=== PATIENT | female | born 2000 | race Caucasian/White ===

== ENCOUNTER 2018-08-27 19:11 | Emergency (ER) | payer SELFPAY ==
[2018-08-27 19:15] VITALS: BMI 20.7
--- NOTE | 2018-08-27 20:15 | PDOC ---
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 Pt states the symptoms started Wednesday night when she was leaning back on her bed. She drank tea on and felt better but the pain returned again when she tried stretching again. She feels the pressure at rest and when she is lifting something heavy, is not worse with exertion. Denies association with eating or food. Denies abdominal pain, n/v/d, SOB, syncope, lightheadedness, palpitations, back pain, neck pain, headaches, cough, fevers, chills. PMD: PMH: see hpi PSH: none Meds: none Allergies: nkda Social: denies Past History - Past Medical History Allergies/Adverse Reactions: Allergies Allergy/AdvReac Type Severity Reaction Status Date / Time No Known Allergies Allergy Verified 08/27/18 19:15 Home Medications: Ambulatory Orders No Home Medications 0 dose .ROUTE UTDICT 04/13/13 Pantoprazole Sodium [Protonix] 40 mg PO DAILY #14 tablet. 08/28/18 COPD: No - Suicide/Smoking/Psychosocial Hx Smoking Status: No Smoking History: Never smoked Number of Cigarettes Smoked Daily: 0 Review of Systems - Review of Systems Constitutional: No: Chills, Fever, Malaise HEENTM: No: Symptoms Reported Respiratory: No: Cough, Shortness of Breath, Hemoptysis Cardiac (ROS): Yes: See HPI, Chest Tightness. No: Edema, Irregular Heart Rate, Lightheadedness, Palpitations, Syncope ABD/GI: Yes: See HPI. No: Constipated, Diarrhea, Nausea, Rectal Bleeding, Vomiting, Tarry Stools : No: Burning, Dysuria, Flank Pain Musculoskeletal: No: Back Pain, Joint Pain, Neck Pain Integumentary: No: Symptoms Reported Neurological: No: Headache, Numbness, Tingling, Weakness *Physical Exam - Vital Signs Last Vital Signs Temp Pulse Resp BP Pulse Ox 98.5 F 114 H 18 113/72 99 08/27/18 19:13 08/27/18 19:13 08/27/18 19:13 08/27/18 19:13 08/27/18 19:13 - Physical Exam General Appearance: Yes: Nourished, Appropriately Dressed. No: Apparent Distress HEENT: positive: EOMI, TONY. negative: Pale Conjunctivae, Scleral Icterus (R), Scleral Icterus (L) Neck: positive: Trachea midline, Supple. negative: Lymphadenopathy (R), Lymphadenopathy (L) Respiratory/Chest: positive: Lungs Clear, Normal Breath Sounds. negative: Crackles, Rales, Rhonchi, Stridor Cardiovascular: positive: Regular Rhythm, S1, S2, Tachycardia. negative: Edema , JVD, Murmur Vascular Pulses: Carotid (R): 2+, Carotid (L): 2+, Dorsalis-Pedis (R): 2+, Doralis-Pedis (L): 2+ Gastrointestinal/Abdominal: positive: Normal Bowel Sounds, Soft. negative: Distended, Guarding, Rebound, Tenderness, Hernia Musculoskeletal: negative: CVA Tenderness Extremity: positive: Normal Capillary Refill, Pelvis Stable. negative: Swelling , Calf Tenderness Integumentary: positive: Normal Color, Dry, Warm Neurologic: positive: prop drawer II-XII NML intact, Fully Oriented, Alert, Normal Mood/ Affect, Normal Response, Motor Strength 5/5 Moderate Sedation - Procedure Monitoring Vital Signs: Procedure Monitoring Vital Signs Temperature 98.5 F 08/27/18 19:13 Pulse Rate 114 H 08/27/18 19:13 Respiratory Rate 18 08/27/18 19:13 Blood Pressure 113/72 08/27/18 19:13 O2 Sat by Pulse Oximetry (%) 99 08/27/18 19:13 ED Treatment Course - LABORATORY CBC & Chemistry Diagram: 08/27/18 21:00 08/27/18 21:00 Medical Decision Making - Medical Decision Making 08/28/18 07:38 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 Pt states the symptoms started Wednesday night when she was leaning back on her bed. She drank tea on and felt better but the pain returned again when she tried stretching again. She feels the pressure at rest and when she is lifting something heavy, is not worse with exertion. Denies association with eating or food. Denies abdominal pain, n/v/d, SOB, syncope, lightheadedness, palpitations, back pain, neck pain, headaches, cough, fevers, chills. Vitals: tachycardia PE: benign High suspicion for GERD. Bc of history of Day, will do cardiac workup. given pepcid, maalox, protonix IV fluids. cbc, cmp, lipase, troponin, ekg, cxr Pt reports having reduction in epigastric fullness but still has pain on L side of chest. bc of pmh, will order CTA chst to r/o dissection, aortic root pathology given that pt has not followed up with a parks and recreation worker. CTA negative for dissection, pe, aortic pathology. Horseshoe kidney. Labs wnl. Pt reports feeling better. Will dc with protonix and [facility] primary care pamphlet for pmd. *DC/Admit/Observation/Transfer Diagnosis at time of Disposition: Chest pressure Acid reflux Qualifiers: Esophagitis presence: esophagitis presence not specified Qualified Code(s): K21.9 - Gastro-esophageal reflux disease without esophagitis - Discharge Dispostion Disposition: HOME Condition at time of disposition: Improved Decision to Admit order: No - Prescriptions Prescriptions: Pantoprazole Sodium [Protonix] 40 mg PO DAILY #14 tablet.dr - Referrals - Patient Instructions Printed Discharge Instructions: DI for Gastroesophageal Reflux Disease (GERD) Additional Instructions: You were seen in the emergency room for upper stomach fullness and a pressure in the chest. I think this is mainly GERD. This happens when the acid in the stomach irritates the esophagus. It can present with discomfort in the upper stomach and chest. I recommend eating less fried and fatty foods and anything acidic. Try not to eat right before you go to bed, wait at least 1 hour before you lay down after eating. You should also wait a few hours before doing any exercise after eating. A prescription was sent to your pharmacy for Protonix. Take it as directed. I highly recommend you make an appointment with your primary care doctor in the next few days for further evaluation and management of your symptoms. If you want a new doctor, a list has been provided to you for the different primary care doctors affiliated with this [facility]. You can call the number on the card and schedule an appointment any time. I would also recommend seeing a parks and recreation worker to follow up with annually to make sure everything is OK with your heart. The primary care doctor can refer you to one. Come back to the emergency room if pain worsens, if you have difficulty breathing, you have palpitations, you pass out, you start vomiting or if any new concerning symptom develops. Thank you - Post Discharge Activity
[2018-08-27] MEDS ORDERED: MAG HYDROX/AL HYDROX/SIMETH 30 ML UNIT-DOSE CUP PO ONE (20:26)
[2018-08-27] MEDS ORDERED: ACETAMINOPHEN 325 MG TABLET (FP) PO ONE (20:26)
[2018-08-27] MEDS ORDERED: FAMOTIDINE 20 MG/50 ML IVPB 20 MG/50 ML MG IVPB ONE ×2 (20:26→21:10)
[2018-08-27] MEDS ORDERED: PANTOPRAZOLE 20 MG TABLET (FP) PO ONE (20:38)
[2018-08-27] MEDS ORDERED: RANITIDINE HCL 150 MG TABLET (FP) PO ONE (20:39)
--- NOTE | 2018-08-27 21:02 | PDOC ---
Attending Attestation - Resident Resident Name: RoselineChayo - ED Attending Attestation I have performed the following: I have examined & evaluated the patient, The case was reviewed & discussed with the resident, I agree w/resident's findings & plan, Exceptions are as noted - HPI HPI: 08/27/18 21:32 18 year old female c/ hx of Day Syndrome presents with epigastric burning pain. Pt reports that in the last few days, the patient noted that when she ate, she felt a burning xiphoid discomfort. No nausea, vomiting. Denies exertional component. Denies fevers, chills. 1st time episode. No shortness of breath. Denies radiation to the back. no sharp or tearing component. - Physicial Exam PE: 08/27/18 21:40 GENERAL: Awake, alert, and fully oriented, in no acute distress HEAD: No signs of trauma EYES: EOMI, sclera anicteric, conjunctiva clear ENT: Auricles normal inspection, hearing grossly normal, nares patent, Moist mucosa NECK: Normal ROM, supple, LUNGS: Breath sounds equal, clear to auscultation bilaterally. No wheezes, and no crackles HEART: Regular rate and rhythm, normal S1 and S2, no murmurs, rubs or gallops ABDOMEN: Soft, mildly TTP epigastric. Euceda sign negative. No guarding, no rebound. No masses EXTREMITIES: Normal range of motion, no edema. No clubbing or cyanosis. No cords, erythema, or tenderness NEUROLOGICAL: Cranial nerves II through XII grossly intact. Normal speech, normal gait SKIN: Warm, Dry, normal turgor, no rashes or lesions noted. - Medical Decision Making 08/27/18 21:40 Vital Signs Temp Pulse Resp BP Pulse Ox 98.5 F 114 H 18 113/72 99 08/27/18 19:13 08/27/18 19:13 08/27/18 19:13 08/27/18 19:13 08/27/18 19:13 Patient's history is atypical for ACS/PE/dissection. I suspect patient has gastritis. Labs including lipase, troponin. Trial GERD medications and reassess. If the workup is negative and pt feels better after meds, pt can be d/c home with PMD followup. Heart Score/ECG Review #1 ECG reviewed & interpreted by me at: 21:35 08/27/18 21:38 NSr 102, no std/marsia, normal axis, normal intervals, nonspecific ST flattening III, avF, QTC 430 msec
[2018-08-27] MEDS ORDERED: ACETAMINOPHEN 325 MG TABLET (FP) ONE (21:09)
[2018-08-27] MEDS ORDERED: RANITIDINE HCL 150 MG TABLET (FP) ONE (21:09)
[2018-08-27] MEDS ORDERED: MAG HYDROX/AL HYDROX/SIMETH 30 ML UNIT-DOSE CUP ONE (21:10)
[2018-08-27] MEDS ORDERED: PANTOPRAZOLE 40 MG TABLET (FP) ONE (21:10)
[2018-08-27 21:16] LABS: BASO % 1.5 % (0-2.0); EOS % 0.5 % (0-4.5); HEMATOCRIT 37.3 % (32.4-45.2); HEMOGLOBIN 13.3 GM/dL (10.7-15.3); LYMPH % 17.5 % (8-40); MCH 30.9 pg (25.7-33.7); MCHC 35.6 g/dl (32.0-36.0); MEAN CELL VOLUME 86.9 fl (80-96); MEAN PLT VOLUME 7.5 fl (7.5-11.1); MONO % 8.7 % (3.8-10.2); NEUT % 71.8 % (42.8-82.8); PLATELET COUNT 329 K/MM3 (134-434); RDW 13.2 % (11.6-15.6); WHITE BLOOD COUNT 6.8 K/mm3 (4.0-10.0)
[2018-08-27 21:44] LABS: INR 1.18 (0.83-1.09); PROTHROMBIN TIME (PATIENT) 13.9 SEC (9.7-13.0)
[2018-08-27 21:56] LABS: ALBUMIN 5.1 g/dl (3.4-5.0); ALK PHOS 143 U/L (45-117); ANION GAP 11 MMOL/L (8-16); BILIRUBIN,TOTAL 0.7 mg/dL (0.2-1); BLOOD UREA NITROGEN 11 mg/dL (7-18); CALCIUM 9.4 mg/dL (8.5-10.1); CHLORIDE 103 mmol/L (98-107); CO2 24 mmol/L (21-32); CREATININE 0.5 mg/dL (0.55-1.3); GLUCOSE,RANDOM 84 mg/dL (74-106); LIPASE 115 U/L (73-393); POTASSIUM 3.6 mmol/L (3.5-5.1); SGOT/AST 19 U/L (15-37); SGPT/ALT 29 U/L (13-61); SODIUM 138 mmol/L (136-145); TOT PROT 8.7 g/dl (6.4-8.2)
[2018-08-27 22:41] VITALS: BP 124/72; PULSE 101; TEMP 98.1
[2018-08-27] MEDS ORDERED: SODIUM CHLORIDE 1,000 ML IV STA (22:49)
--- NOTE | 2018-08-28 11:08 | EKG ---
Test Reason : Blood Pressure : / mmHG Vent. Rate : 102 BPM Atrial Rate : 102 BPM P-R Int : 130 ms QRS Dur : 074 ms QT Int : 330 ms P-R-T Axes : 072 037 024 degrees QTc Int : 430 ms SINUS TACHYCARDIA NONSPECIFIC ST ABNORMALITY POSSIBLE LEFT ATRIAL ENLARGEMENT WHEN COMPARED WITH ECG OF 13-APR-2013 20:03, PREVIOUS ECG IS PRESENT Confirmed by JASEN ARANGO MD ([id number]) on 08/28/2018 11:08:12 AM Referred By: Confirmed By:JASEN ARANGO MD
== END 2018-08-28 00:46 | disposition home or self-care (01) ==
LOC: JER 19:11
PROC: 3E0337Z Introduction of Electrolytic and Water Balance Substance into Peripheral Vein, Percutaneous Approach (ICD-10-PCS; principal; 2018-08-27)
PROC: 3E033GC Introduction of Other Therapeutic Substance into Peripheral Vein, Percutaneous Approach (ICD-10-PCS; 2018-08-27)
DX: K21.9 Gastro-esophageal reflux disease without esophagitis (principal); R07.89 Other chest pain; Q96.9 Turner's syndrome, unspecified
CPT/HCPCS: 36415; 71046-TC-FY; 71275-TC; 74175-TC; 80053; 83690; 84484; 85025; 85610; 93005; 93010; 99283-25; J7030

== ENCOUNTER 2019-06-30 21:47 | Emergency (ER) | payer SELFPAY ==
[2019-06-30 22:01] VITALS: BMI 23.1
--- NOTE | 2019-06-30 23:54 | PDOC ---
Attending Attestation - Resident Resident Name: Chris Velazco - ED Attending Attestation I have performed the following: I have examined & evaluated the patient, The case was reviewed & discussed with the resident, I agree w/resident's findings & plan - HPI HPI: 07/01/19 00:19 Pt has diaz's syndrome. She comes with right lateral neck/parotid swelling that began yesterday. She attended a Thanksgiving dinner with a bunch of family and young children. No ill contacts as far as she can tell. She has no fever and no pain with swallowing But she feels a fullness in her neck. - Physicial Exam PE: 07/01/19 00:20 Pt has normal heart and lungs. Right TM is occluded with cerumen Left TM scarred Pt has clear breath sounds Normal abd exam No flank pain - Medical Decision Making 07/01/19 00:21 Rapid strep sent Neck XR pending. 07/01/19 01:02 Pt has thickened aryepiglottic fold on neck XR; this could be early epiglottitis 07/01/19 02:04 Grp A strep negative. Pt will be treated with 1g ceftriaxone for epiglottitis 07/01/19 02:10 atient Name: JB WALSH THIS IS A PRELIMINARY REPORT FROM [employer] [employer] [facility] DATE OF SERVICE: 2019-07-01 00:38:18 IMAGES: 2 EXAM: X-ray NECK SOFT TISSUE HISTORY: 19-Year-Old Female With Right Neck Swelling. COMPARISON: None. FINDINGS: No radiodense foreign body. Mildly prominent aryepiglottic folds and epiglottis suspicious for acute epiglottitis infection. IMPRESSION: No radiodense foreign body. Mildly prominent aryepiglottic folds and epiglottis suspicious for acute epiglottitis infection. If there is a clinical concern for acute epiglottitis infections and further evaluation and workup CT Soft Pt will have CT scan of the neck as well as rocephin 07/01/19 03:38 Chem is normal Pt needs CT scan 07/01/19 04:14 Patient Name: JB WALSH THIS IS A PRELIMINARY REPORT FROM [facility] [employer] DATE OF SERVICE: 2019-07-01 02:37:18 IMAGES: 427 EXAM: SOFT TISSUE NECK CT WITH CONTR HISTORY: 19-Year-Old Female Right Neck Swelling Assess For Epiglottitis COMPARISON: July 01, 2019 CONTRAST: 76 mL of Omnipaque Intravenous Contrast Was Administered. FINDINGS: Epiglottis and aryepiglottic folds appear unremarkable. Mildly enlarged parotid glands. Mildly enlarged palatine tonsils. Bilateral jugular subcentimeter lymph nodes may be reactive. Bones appear unremarkable. Left maxillary sinus mucous retention cyst or polyp. IMPRESSION: No epiglottitis. Mildly enlarged palatine tonsils. Bilateral jugular subcentimeter lymph nodes may be reactive. Left maxillary sinus mucous retention cyst or polyp. Mildly enlarged parotid glands Parotitis, NOS Pt can follow with her PMD
[2019-07-01] MEDS ORDERED: IBUPROFEN 600 MG TABLET (FP) PO ONE (00:21)
[2019-07-01] MEDS ORDERED: IBUPROFEN 400 MG TABLET (FP) PO ONE (00:30)
--- NOTE | 2019-07-01 01:05 | PDOC ---
History of Present Illness - General Chief Complaint: Pain, Acute Stated Complaint: SWOLLEN GLANDS Time Seen by Provider: 06/30/19 23:51 History Source: Patient Exam Limitations: No Limitations - History of Present Illness Initial Comments: 07/01/19 01:00 19F with a PMH of Day syndrome, UTD on vax, presents to the ER with complaints of swollen glands. The patient states that she noticed swelling around the lower part of her jaw yesterday after eating lasagna and pork. She states that it was one sided and went down. Today, she ate that lasagna again and felt swelling bilaterally. She denies any tenderness or redness, sore throat , cough, fever, chills, nausea, vomiting, body aches. Past History - Past Medical History Allergies/Adverse Reactions: Allergies Allergy/AdvReac Type Severity Reaction Status Date / Time No Known Allergies Allergy Verified 07/01/19 00:19 Home Medications: Ambulatory Orders No Home Medications 0 dose .ROUTE UTDICT 04/13/13 COPD: No Other medical history: Day's syndrome - Psycho Social/Smoking Cessation Hx Smoking Status: No Smoking History: Never smoked Number of Cigarettes Smoked Daily: 0 Review of Systems - Review of Systems Able to Perform ROS?: Yes Comments:: 07/01/19 01:03 GENERAL/CONSTITUTIONAL: No fever or chills. No weakness. HEAD, EYES, EARS, NOSE AND THROAT: + for swollen glands (parotid). No change in vision. No ear pain or discharge. No sore throat. CARDIOVASCULAR: No chest pain, palpitations, or lightheadedness. RESPIRATORY: No cough, wheezing, shortness of breath, or hemoptysis. GASTROINTESTINAL: No abdominal pain, nausea, vomiting, diarrhea, or constipation. GENITOURINARY: No dysuria, frequency, hematuria, or change in urination. MUSCULOSKELETAL: No joint or muscle swelling or pain. No neck or back pain. SKIN: No rash or lesions. NEUROLOGIC: No headache, numbness, tingling, focal weakness, loss of consciousness, or change in strength/sensation. Is the patient limited [place]ian proficient: No *Physical Exam - Vital Signs Last Vital Signs Temp Pulse Resp BP Pulse Ox 98.3 F 113 H 19 114/71 100 06/30/19 21:58 06/30/19 21:58 06/30/19 21:58 06/30/19 21:58 06/30/19 21:58 - Physical Exam 07/01/19 01:04 GENERAL: Well developed, well nourished. Awake and alert. No acute distress. HEENT: Nontender, nonerythematous, swollen parotid glands bilaterally with mild cervical lymphadenopathy. Normocephalic, atraumatic. Hearing grossly normal. Moist mucous membranes. PERRLA, EOMI. No conjunctival pallor. Sclera are non- icteric. Oropharynx is clear. NECK: Supple. Full ROM. CARDIOVASCULAR: Regular rate and rhythm. No murmurs, rubs, or gallops. PULMONARY: No evidence of respiratory distress. Lungs clear to auscultation bilaterally. No wheezing, rales or rhonchi. ABDOMINAL: Soft. Non-tender. Non-distended. No rebound or guarding. No organomegaly. Normoactive bowel sounds. MUSCULOSKELETAL: Normal range of motion at all joints. No bony deformities or tenderness. EXTREMITIES: No cyanosis. No clubbing. No edema. No calf tenderness or swelling. SKIN: Warm and dry. Normal capillary refill. No rashes. No jaundice. NEUROLOGICAL: Alert, awake, appropriate. Cranial nerves 2-12 grossly intact. Normal speech. Gait is normal without ataxia. PSYCHIATRIC: Cooperative. Good eye contact. Appropriate mood and affect. ED Treatment Course - LABORATORY CBC & Chemistry Diagram: 07/01/19 01:38 07/01/19 01:38 - Medications Given in the ED: ED Medications Discontinued Medications Generic Name Dose Route Start Last Admin Trade Name Freq PRN Reason Stop Dose Admin Ibuprofen 400 mg 07/01/19 00:21 07/01/19 00:32 Motrin - PO 07/01/19 00:22 400 mg ONCE ONE Administration Medical Decision Making - Medical Decision Making 07/01/19 01:05 19F with a PMH of Day's who presents with bilateral, nontender parotid gland swelling. Pt is afebrile and otherwise well appearing. Ddx includes sialoadenosis, sialoadenitis, and sialolithiasis. Will obtain neck XR and give ibuprofen to decrease inflammation. Pending rapid strep and XR. 07/01/19 04:14 XR was concerning for epiglottitis and radiologist recommended CT. CT IMPRESSION: No epiglottitis. Mildly enlarged palatine tonsils. Bilateral jugular subcentimeter lymph nodes may be reactive. Left maxillary sinus mucous retention cyst or polyp. Mildly enlarged parotid glands. Will d/c with PCP f/u. Discharge - Discharge Information Problems reviewed: Yes Clinical Impression/Diagnosis: Parotid swelling Condition: Good Disposition: HOME - Admission No - Follow up/Referral - Patient Discharge Instructions Patient Printed Discharge Instructions: DI for Parotitis-Adult Additional Instructions: Your ER visit is not complete until your follow up with your primary care physician. Please follow up with your primary care physician in 1-2 days. Please return to the ER if you have any signs or symptoms of chest pain, shortness of breath, uncontrollable fever, chills, nausea, vomiting, numbness, tingling, or weakness in any part of your body, changes in vision, or slurred speech. Please return to the ER if symptoms persist, worsen, or new symptoms arise. - Post Discharge Activity
[2019-07-01] MEDS ORDERED: SODIUM CHLORIDE 0.9% 500 ML INFUS.BAG IV ONE (01:13)
[2019-07-01 01:58] LABS: BASO % 1.1 % (0-2.0); EOS % 0.5 % (0-4.5); HEMATOCRIT 39.2 % (32.4-45.2); HEMOGLOBIN 13.3 GM/dL (10.7-15.3); LYMPH % 22.7 % (8-40); MCH 29.8 pg (25.7-33.7); MCHC 33.8 g/dl (32.0-36.0); MEAN CELL VOLUME 88.2 fl (80-96); MEAN PLT VOLUME 7.9 fl (7.5-11.1); MONO % 9.9 % (3.8-10.2); NEUT % 65.8 % (42.8-82.8); PLATELET COUNT 360 K/MM3 (134-434); RBC 4.45 M/mm3 (3.60-5.2); RDW 13.3 % (11.6-15.6)
[2019-07-01] MEDS ORDERED: CEFTRIAXONE 1,000 MG in DEXTROSE 5%-WATER - 50 ML IVPB ONE (02:03)
[2019-07-01 02:25] LABS: ALBUMIN 4.5 g/dl (3.4-5.0); BILIRUBIN,TOTAL 0.5 mg/dL (0.2-1); BLOOD UREA NITROGEN 13.4 mg/dL (7-18); CALCIUM 9.7 mg/dL (8.5-10.1); CREATININE 0.7 mg/dL (0.55-1.3); POTASSIUM 3.7 mmol/L (3.5-5.1); TOT PROT 8.3 g/dl (6.4-8.2)
[2019-07-01] MEDS ORDERED: CEFTRIAXONE 1 GM/50 ML BAG ONE (02:28)
[2019-07-01 04:18] VITALS: BP 119/62; PULSE 89; TEMP 97.9
== END 2019-07-01 04:18 | disposition home or self-care (01) ==
LOC: JERFT 21:47 → JER 21:47
DX: R59.0 Localized enlarged lymph nodes (principal); R60.9 Edema, unspecified; K11.20 Sialoadenitis, unspecified; Q96.9 Turner's syndrome, unspecified
CPT/HCPCS: 36415; 70360-TC-FY; 70491-TC; 80053; 85025; 87070; 87077; 87880; 99283-25

== ENCOUNTER 2022-02-22 23:55 | Emergency (ER) | payer SELFPAY ==
[2022-02-23 00:11] VITALS: BP 116/71; PULSE 101; RESP 19; TEMP 98.2; BMI 56.1
[2022-02-23] MEDS ORDERED: LORATADINE 10 MG TABLET PO ONE (03:26)
[2022-02-23] MEDS ORDERED: LORATADINE 10 MG TABLET ONE (03:29)
== END 2022-02-23 03:41 | disposition home or self-care (01) ==
LOC: JER 23:55
DX: T78.40XA Allergy, unspecified, initial encounter (principal)
CPT/HCPCS: 99283-25

== ENCOUNTER 2023-09-11 18:18 | Emergency (ER) | payer SELFPAY ==
[2023-09-11 18:40] VITALS: BP 102/66; BMI 17.5
[2023-09-11 19:42] LABS: BASO % 0.3 % (0-2.0); EOS % 0.2 % (0-4.5); HEMATOCRIT 35.1 % (32.4-45.2); HEMOGLOBIN 12.3 GM/dL (10.7-15.3); MCH 29.5 pg (25.7-33.7); MEAN CELL VOLUME 84.1 fl (80-96); MEAN PLT VOLUME 7.5 fl (7.5-11.1); MONO % 14.4 % (3.8-10.2); NEUT % 75.1 % (42.8-82.8); PLATELET COUNT 270 10^3/uL (134-434); RBC 4.17 M/mm3 (3.60-5.2); RDW 13.1 % (11.6-15.6); WHITE BLOOD COUNT 9.7 K/mm3 (4.0-10.0)
[2023-09-11] MEDS: SODIUM CHLORIDE 0.9% 500 ML INFUS.BAG IV ONE ×2 (19:42→21:06)
[2023-09-11] MEDS ORDERED: KETOROLAC TROMETHAMINE 15 MG/ML VIAL ONE (19:57)
[2023-09-11] MEDS ORDERED: ACETAMINOPHEN INJECTION 100 ML IVPB ONE (19:57)
[2023-09-11] MEDS: ACETAMINOPHEN 1000 MG/100 ML BAG IVPB ONE (20:17)
[2023-09-11] MEDS: KETOROLAC TROMETHAMINE 15 MG/ML VIAL IM ONE (20:17)
[2023-09-11 20:28] LABS: BILIRUBIN,TOTAL 0.4 mg/dL (0.2-1); BLOOD UREA NITROGEN 10.4 mg/dL (7-18); CALCIUM 8.4 mg/dL (8.5-10.1); CREATININE 0.6 mg/dL (0.55-1.3); TOT PROT 7.7 g/dl (6.4-8.2)
[2023-09-11] MEDS ORDERED: POTASSIUM CHLORIDE ORAL LIQUID 20 MEQ/15 ML ONE (21:45)
[2023-09-11] MEDS: POTASSIUM CHLORIDE ORAL LIQUID 20 MEQ/15 ML PO ONE (21:48)
[2023-09-11 21:51] VITALS: PULSE 81; RESP 16
[2023-09-11] MEDS ORDERED: ONDANSETRON *ODT* 4 MG TABLET ONE (22:09)
[2023-09-11] MEDS: ONDANSETRON *ODT* 4 MG TABLET SL ONE (22:11)
[2023-09-11 22:12] VITALS: TEMP 98.7
[2023-09-11 22:39] LABS: EPI CELLS 1 /uL (0-25.1); HYALINE CASTS 0 /uL (0-3.1); PH,URINE 6.5 (5.0-8.0); URINE APPEARANCE CLEAR; URINE BACTERIA 3 /uL (0-1359); URINE BILIRUBIN NEGATIVE (NEGATIVE); URINE COLOR YELLOW; URINE GLUCOSE (UA) NEGATIVE (NEGATIVE); URINE KETONE 1+ (NEGATIVE); URINE LEUK ESTERASE NEGATIVE (NEGATIVE); URINE NITRITE NEGATIVE (NEGATIVE); URINE PROTEIN NEGATIVE (NEGATIVE); URINE RBC 15 /uL (0-23.9); URINE UROBILINOGEN 0.2 mg/dL (0.2-1.0); URINE WBC 1 /uL (0-25.8)
== END 2023-09-11 23:17 | disposition home or self-care (01) ==
LOC: JERFT 18:18 → JER 18:18
PROC: 3E033NZ Introduction of Analgesics, Hypnotics, Sedatives into Peripheral Vein, Percutaneous Approach (ICD-10-PCS; principal; 2023-09-11)
PROC: 3E0233Z Introduction of Anti-inflammatory into Muscle, Percutaneous Approach (ICD-10-PCS; 2023-09-11)
DX: R50.9 Fever, unspecified (principal); U07.1 COVID-19; J11.1 Influenza due to unidentified influenza virus with other respiratory manifestations
CPT/HCPCS: 0241U-QW; 36415; 71046-TC-FY; 80053; 81003; 83605; 83880; 84484; 84703; 85025; 85379; 86140; 87040; 93005; 93010; 99285-25; J0131; Q0162